=== PATIENT | male | born 1985 | race Caucasian/White ===

== ENCOUNTER 2019-02-25 01:04 | Emergency (ER) | payer SELFPAY ==
[~2019-02-25] VITALS: Ht 193 cm; Wt 99.8 kg
[2019-02-25 01:05] VITALS: BP 124/87
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
[2019-02-25 01:14] VITALS: BP 119/88
== END 2019-02-25 01:13 ==
LOC: MED 01:04
DX: Z04.1 Encounter for examination and observation following transport accident (principal); V43.52XA Car driver injured in collision with other type car in traffic accident, initial encounter; Y93.89 Activity, other specified; Y92.411 Interstate highway as the place of occurrence of the external cause; Y99.8 Other external cause status
CPT/HCPCS: 99283